=== PATIENT | male | born 1975 | race Caucasian/White ===

== ENCOUNTER 2025-02-28 12:37 | Emergency (ER) | payer BC, OTHER ==
[~2025-02-28] VITALS: Ht 182.9 cm; Wt 128.0 kg
[~2025-02-28 12:37] MED LIST: HYDR-4383 PO; TRAM50TA2 PO
[2025-02-28 12:50] VITALS: BP 126/75; PULSE 91; RESP 18; O2SAT 98
[2025-02-28 14:47] VITALS: TEMP 97.8
== END 2025-02-28 14:49 | disposition home or self-care (01) ==
LOC: ER 12:37
DX: J06.9 Acute upper respiratory infection, unspecified (principal); E11.9 Type 2 diabetes mellitus without complications
CPT/HCPCS: 71045; 99283